=== PATIENT | male | born 1975 | race Caucasian/White ===

== ENCOUNTER 2016-12-10 10:25 | Emergency (ER) | payer BC, OTHER, SELFPAY ==
[~2016-12-10] VITALS: Ht 180.3 cm; Wt 101.4 kg
[2016-12-10] MEDS ORDERED: DIAZEPAM 5 MG TABLET ONE (10:56)
[2016-12-10] MEDS ORDERED: KETOROLAC 30 MG/1 ML ONE (10:56)
[2016-12-10] MEDS ORDERED: DIAZEPAM 5 MG TABLET PO ONE (11:00)
[2016-12-10] MEDS ORDERED: KETOROLAC 30 MG/1 ML IM ONE (11:00)
[2016-12-10] MEDS ORDERED: ONDANSETRON ODT 4 MG PO ONE (12:00)
[2016-12-10] MEDS ORDERED: HYDROmorphone 1 MG/ML, 1ML IM ONE (12:00)
[2016-12-10] MEDS ORDERED: ONDANSETRON ODT 4 MG ONE (12:03)
[2016-12-10] MEDS ORDERED: HYDROmorphone 1 MG/ML, 1ML ONE (12:03)
[2016-12-10 13:30] VITALS: BP 144/89
== END 2016-12-10 13:32 | disposition home or self-care (01) ==
LOC: ED 10:44
DX: M54.42 Lumbago with sciatica, left side (principal)
CPT/HCPCS: 96372; 99284; J1170; J1885; Q0162

== ENCOUNTER 2017-05-06 10:50 | Emergency (ER) | payer BC ==
[~2017-05-06] VITALS: Ht 180.3 cm; Wt 104.0 kg
[2017-05-06 13:04] VITALS: BP 136/95
[2017-05-06] MEDS ORDERED: DIAZEPAM 5 MG TABLET PO ONE (13:30)
[2017-05-06] MEDS ORDERED: OXYcodone/APAP 5/325MG TABLET PO ONE (13:30)
[2017-05-06] MEDS ORDERED: KETOROLAC 30 MG/1 ML IM ONE (13:30)
[2017-05-06] MEDS ORDERED: OXYcodone/APAP 5/325MG TABLET ONE (13:34)
[2017-05-06] MEDS ORDERED: KETOROLAC 30 MG/1 ML ONE (13:34)
[2017-05-06] MEDS ORDERED: DIAZEPAM 5 MG TABLET ONE (13:34)
[2017-05-06] MEDS ORDERED: ONDANSETRON ODT 4 MG ONE (14:45)
[2017-05-06] MEDS ORDERED: HYDROmorphone 2 MG/ML, 1ML ONE (14:46)
[2017-05-06] MEDS ORDERED: HYDROmorphone 2 MG/ML, 1ML IM ONE (15:00)
[2017-05-06] MEDS ORDERED: ONDANSETRON ODT 4 MG PO ONE (15:00)
== END 2017-05-06 15:34 | disposition home or self-care (01) ==
LOC: ED 14:33
DX: S39.012A Strain of muscle, fascia and tendon of lower back, initial encounter (principal); G89.29 Other chronic pain; X58.XXXA Exposure to other specified factors, initial encounter; Y93.89 Activity, other specified; Y92.89 Other specified places as the place of occurrence of the external cause; Y99.8 Other external cause status
CPT/HCPCS: 72110; 96372; 99284; J1170; J1885; Q0162

== ENCOUNTER 2017-05-26 13:10 | Emergency (ER) | payer BC, OTHER ==
[~2017-05-26] VITALS: Ht 177.8 cm; Wt 100.0 kg
[2017-05-26] MEDS ORDERED: ONDANSETRON ODT 8 MG PO ONE (14:00)
[2017-05-26] MEDS ORDERED: HYDROmorphone 1 MG/ML, 1ML IM ONE (14:00)
[2017-05-26] MEDS ORDERED: HYDROmorphone 2 MG/ML, 1ML ONE (14:08)
[2017-05-26] MEDS ORDERED: ONDANSETRON ODT 8 MG ONE (14:09)
[2017-05-26 15:09] VITALS: BP 136/93
== END 2017-05-26 15:10 | disposition home or self-care (01) ==
LOC: ED 14:06
DX: M51.26 Other intervertebral disc displacement, lumbar region (principal)
CPT/HCPCS: 72148; 96372; 99284; J1170

== ENCOUNTER 2018-01-15 11:45 | Emergency (ER) | payer OTHER ==
[~2018-01-15] VITALS: Ht 177.8 cm; Wt 90.0 kg
[2018-01-15] MEDS ORDERED: HYDROmorphone 2 MG/ML, 1ML ONE ×2 (12:49→14:32)
[2018-01-15] MEDS ORDERED: DIAZEPAM 5 MG TABLET ONE (12:51)
[2018-01-15] MEDS ORDERED: ONDANSETRON ODT 4 MG ONE (12:51)
[2018-01-15] MEDS ORDERED: DIAZEPAM 5 MG TABLET PO ONE (13:00)
[2018-01-15] MEDS ORDERED: HYDROmorphone 2 MG/ML, 1ML IM ONE ×2 (13:00→14:30)
[2018-01-15] MEDS ORDERED: ONDANSETRON ODT 4 MG PO ONE (13:00)
[2018-01-15 15:16] VITALS: BP 131/70
== END 2018-01-15 15:18 | disposition home or self-care (01) ==
LOC: ED 15:12
DX: G89.29 Other chronic pain (principal); M54.5 Low back pain
CPT/HCPCS: 72148; 96372; 99284; J1170; Q0162

== ENCOUNTER → 2018-06-03 | Outpatient (CLI) | payer OTHER ==
[~2018-06-03] MED LIST: GADOBUTROL 10 MMOL/10 ML PFS ONE
== END | disposition home or self-care (01) ==
LOC: RAD 12:44
PROVIDERS: ATTEND Registered Nurse Registered Nurse First Assistant
DX: M51.16 Intervertebral disc disorders with radiculopathy, lumbar region (principal); M48.07 Spinal stenosis, lumbosacral region; M25.78 Osteophyte, vertebrae
CPT/HCPCS: 72158; A9585

== ENCOUNTER 2018-12-07 16:45 | Emergency (ER) | payer BC, OTHER ==
[~2018-12-07] VITALS: Ht 177.8 cm; Wt 102.4 kg
[2018-12-07 18:41] VITALS: BP 113/76
== END 2018-12-07 18:59 | disposition home or self-care (01) ==
LOC: ED 18:54
DX: R10.32 Left lower quadrant pain (principal); R11.2 Nausea with vomiting, unspecified; I10 Essential (primary) hypertension
CPT/HCPCS: 36415; 74177; 80053; 81003; 83690; 85025; 96374; 96375; 96376; 99284; J2270; J2405; Q9967

== ENCOUNTER 2018-12-09 15:14 | Inpatient (IN) | payer BC, OTHER ==
[~2018-12-09] VITALS: Ht 177.8 cm; Wt 98.2 kg
[~2018-12-09 15:14] MED LIST changes: -GADOBUTROL 10 MMOL/10 ML PFS ONE; +LOSA1TAB22 PO
[2018-12-09] MEDS ORDERED: ONDANSETRON 2MG/ML, 2ML IVPush ONE (16:00)
[2018-12-09] MEDS ORDERED: SODIUM CHLORIDE FLUSH 10ML SYR IVF ONE (16:00)
[2018-12-09 16:04] LABS: BASOPHILS # (AUTO) 0.04 x10^3/uL (0-0.1); BASOPHILS % (AUTO) 1 % (0-1); EOSINOPHILS # (AUTO) 0.03 x10^3/uL (0-0.4); EOSINOPHILS % (AUTO) 1 % (1-7); LYMPHOCYTES % (AUTO) 28 % (22-44); MD NO; MEAN CORPUSCULAR HEMOGLOBIN 32.8 pg (27.5-34.5); MEAN CORPUSCULAR HGB CONC 33.7 g/dL (33.2-36.2); MEAN CORPUSCULAR VOLUME 97.5 fL (81-97); MEAN PLATELET VOLUME 8.7 fL (7.4-10.4); MONOCYTES # (AUTO) 0.53 x10^3/uL (0.2-0.8); MONOCYTES % (AUTO) 9 % (2-9); NEUTROPHILS # (AUTO) 3.48 x10^3/uL (1.8-6.8); NEUTROPHILS % (AUTO) 61 % (42-75); PLATELET COUNT 292 x10^3/uL (130-400); RED BLOOD COUNT 4.88 x10^6/uL (4.38-5.82); RED CELL DISTRIBUTION WIDTH 13.8 % (9.4-14.8)
[2018-12-09] MEDS ORDERED: HYDROmorphone 1 MG/ML, 1ML VIAL ONE (16:13)
[2018-12-09 16:14] LABS: ALANINE AMINOTRANSFERASE 56 U/L (12-78); ANION GAP 6 mmol/L (5-15); CALCIUM 8.7 mg/dL (8.5-10.1); CHLORIDE 108 mmol/L (98-107); CREATININE 1.14 mg/dL (0.7-1.3)
[2018-12-09] MEDS ORDERED: ONDANSETRON 2MG/ML, 2ML ONE (16:14)
[2018-12-09 16:16] LABS: ALKALINE PHOSPHATASE 47 U/L (45-117); BILIRUBIN,TOTAL 0.4 mg/dL (0.2-1.0); TOTAL PROTEIN 7.8 g/dL (6.4-8.2)
[2018-12-09] MEDS: HYDROmorphone 2 MG/ML, 1ML IVPush PRN ×2 (16:19→17:01)
--- NOTE | 2018-12-09 16:25 | NUR ---
pt resting comfortably on an e,r, gurney awaiting legal director for scan. no acute changes noted at this time since his arrival here. i will continue to monitor and treat as ordered, as well as prn.
[2018-12-09] MEDS ORDERED: OMNIPAQUE 350 MG/ML, 100ML BOTTLE ONE (16:53)
[2018-12-09] MEDS ORDERED: AMPICILLIN/SULBACTAM 3 GM in SODIUM CHLORIDE 0.9% 100 ML IV ONE (17:00)
[2018-12-09] MEDS ORDERED: METRONIDAZOLE PMX 500MG/100ML 100 ML IV ONE (17:00)
[2018-12-09] MEDS ORDERED: METRONIDAZOLE PMX 500MG/100ML 100 ML ONE (17:04)
--- NOTE | 2018-12-09 17:19 | NUR ---
pt notified of the likelihood of admission in order to prepare.
[2018-12-09 17:23] LABS: MICROSCOPIC INDICATED
[2018-12-09 17:24] LABS: CULTURE INDICATED? YES
--- NOTE | 2018-12-09 17:31 | NUR ---
delvin (rn) is assuming care of this pt while i have a lunch break. sbar report was exchanged at the bedside.
--- NOTE | 2018-12-09 18:02 | NUR ---
LEFTY RN: DR. ALEJANDRO AT BEDSIDE. PT TO BE ADMITTED. PT TO REMAIN NPO.
--- NOTE | 2018-12-09 18:05 | NUR ---
PAGED DR MATTHEWS FOR DR ALEJANDRO.
--- NOTE | 2018-12-09 18:35 | NUR ---
VERBAL SBAR EXCHANGED W SANJU (RN) ON THE FLOOR FOR ADMISSION. WE WILL BEGIN TO PREPARE FOR TRANSPORT AT THIS TIME.
[2018-12-09] MEDS ORDERED: ONDANSETRON 2MG/ML, 2ML IVPush PRN (19:00)
[2018-12-09] MEDS ORDERED: ACETAMINOPHEN 325 MG TABLET PO PRN (19:00)
[2018-12-09] MEDS ORDERED: POLYETHYLENE GLYCOL 17 GM PACKET PO PRN (19:00)
[2018-12-09] MEDS ORDERED: BISACODYL 10 MG SUPP PR PRN (19:00)
[2018-12-09] MEDS: morphine SULFATE 10 MG/ML, 1ML IVPush PRN ×2 (19:34→22:31)
[2018-12-09 19:37] VITALS: BP 112/72
[2018-12-09] MEDS: NS + 20MEQ KCL 1,000 ML IV SCH (20:09)
[2018-12-10] MEDS ORDERED: KETOROLAC 30 MG/1 ML IVPush PRN (00:30)
[2018-12-10 01:50] VITALS: BP 118/79
[2018-12-10] MEDS: NS + 20MEQ KCL 1,000 ML IV SCH ×2 (05:45→18:41)
[2018-12-10] MEDS ORDERED: HYDROCHLOROTHIAZIDE 25 MG TABLET PO SCH (09:00)
[2018-12-10] MEDS ORDERED: SINCALIDE (KINEVAC) 5 MCG ONE (09:21)
[2018-12-10] MEDS: LOSARTAN 50MG TABLET PO SCH (10:19)
[2018-12-10 10:25] LABS: BASOPHILS # (AUTO) 0.03 x10^3/uL (0-0.1); BASOPHILS % (AUTO) 1 % (0-1); EOSINOPHILS # (AUTO) 0.03 x10^3/uL (0-0.4); EOSINOPHILS % (AUTO) 1 % (1-7); LYMPHOCYTES # (AUTO) 1.49 x10^3/uL (1-3.4); LYMPHOCYTES % (AUTO) 28 % (22-44); MD NO; MEAN CORPUSCULAR HEMOGLOBIN 32.5 pg (27.5-34.5); MEAN CORPUSCULAR HGB CONC 33.7 g/dL (33.2-36.2); MEAN CORPUSCULAR VOLUME 96.4 fL (81-97); MEAN PLATELET VOLUME 8.2 fL (7.4-10.4); MONOCYTES # (AUTO) 0.46 x10^3/uL (0.2-0.8); MONOCYTES % (AUTO) 9 % (2-9); NEUTROPHILS # (AUTO) 3.28 x10^3/uL (1.8-6.8); NEUTROPHILS % (AUTO) 62 % (42-75); PLATELET COUNT 257 x10^3/uL (130-400); RED CELL DISTRIBUTION WIDTH 14.2 % (9.4-14.8)
[2018-12-10] MEDS: morphine SULFATE 10 MG/ML, 1ML IVPush PRN ×5 (10:36→23:57)
[2018-12-10] MEDS: PANTOPRAZOLE 40 MG IV IVPush SCH (10:36)
[2018-12-10 10:43] LABS: ALANINE AMINOTRANSFERASE 56 U/L (12-78); ALBUMIN 3.7 g/dL (3.4-5.0); ALKALINE PHOSPHATASE 45 U/L (45-117); BILIRUBIN,TOTAL 1.1 mg/dL (0.2-1.0); CALCIUM 8.8 mg/dL (8.5-10.1); CREATININE 0.96 mg/dL (0.7-1.3); TOTAL PROTEIN 7.3 g/dL (6.4-8.2)
[2018-12-10 10:48] LABS: ANION GAP 4 mmol/L (5-15); CHLORIDE 110 mmol/L (98-107)
[2018-12-10 11:04] VITALS: BP 119/75
[2018-12-10 14:31] VITALS: BP 126/83
[2018-12-10 20:07] VITALS: BP 130/85
[2018-12-11 01:56] VITALS: BP 104/64
[2018-12-11] MEDS: morphine SULFATE 10 MG/ML, 1ML IVPush PRN ×2 (03:50→08:19)
[2018-12-11] MEDS: NS + 20MEQ KCL 1,000 ML IV SCH (06:00)
[2018-12-11] MEDS ORDERED: HYDR25TA6 PO (06:11)
[2018-12-11] MEDS ORDERED: LOSA100T14 PO (06:11)
[2018-12-11 06:47] LABS: ALANINE AMINOTRANSFERASE 53 U/L (12-78); ALBUMIN 3.3 g/dL (3.4-5.0); ANION GAP 4 mmol/L (5-15); CALCIUM 8.2 mg/dL (8.5-10.1); CHLORIDE 110 mmol/L (98-107); CREATININE 0.83 mg/dL (0.7-1.3)
[2018-12-11 06:49] LABS: ALKALINE PHOSPHATASE 39 U/L (45-117); BILIRUBIN,TOTAL 0.5 mg/dL (0.2-1.0); TOTAL PROTEIN 6.5 g/dL (6.4-8.2)
[2018-12-11 08:14] VITALS: BP 127/79
[2018-12-11] MEDS: PANTOPRAZOLE 40 MG IV IVPush SCH (08:20)
[2018-12-11] MEDS: LOSARTAN 50MG TABLET PO SCH (08:20)
[2018-12-11] MEDS ORDERED: OMEP-110 PO (09:37)
[2018-12-11] MEDS ORDERED: HYDR-3240 PO ×2 (09:37→09:56)
[2018-12-11] MEDS ORDERED: LOSA50TA14 PO (09:37)
== END 2018-12-11 15:59 | disposition home or self-care (01) | DRG 446 ==
LOC: ED 17:01 → EDIP 18:16 → 3NE 19:05 → DCLOUNGE 12-11 15:52
PROVIDERS: ADMIT Family Medicine; ATTEND Family Medicine
DX: K82.8 Other specified diseases of gallbladder (principal); Z87.11 Personal history of peptic ulcer disease; I10 Essential (primary) hypertension
CPT/HCPCS: 36415; 74177; 78227; 80053; 81001; 82607; 83605; 83690; 83735; 84100; 84145; 85025; 87086; 96365; 96375; 96376; G0378; J1170; J1885; J2405; J3480; Q9967; A9537; C9113; C9898; J2270; J2805